=== PATIENT | male | born 1990 | race Caucasian/White ===

== ENCOUNTER 2021-08-25 21:09 | Emergency (ER) | payer BC, SELFPAY ==
[2021-08-25 21:11] VITALS: BP 122/77; PULSE 100; RESP 20; TEMP 36.6; O2SAT 100
[2021-08-25 21:48] VITALS: RESP 18
--- NOTE | 2021-08-25 22:30 | ED.GENADULT ---
HPI - General Adult General Chief complaint: Overdose Stated complaint: meth ingestion from [facility] Time Seen by Provider: 08/25/21 21:51 History of Present Illness HPI narrative: Patient is a 30-year-old male who presents to the ER from [facility] for drug ingestion. Patient is no longer in custody. He was pulled over earlier in the evening around 6:30 PM. When he was pulled over he ingested methamphetamine as well as some oral tablets of fentanyl. He is not concerned about the fentanyl ingestion as it was no more than he would typically take. He reports he developed an upset stomach from ingesting methamphetamine is feeling anxious but no longer feels uncomfortable. He has no chest pain or chest pressure. No nausea or vomiting or shortness of breath. No thoughts of self-harm. Related Data Allergies Allergy/AdvReac Type Severity Reaction Status Date / Time No Known Allergies Allergy Mild Verified 08/25/21 21:14 Review of Systems Review of Systems: All systems reviewed & are unremarkable except as noted in HPI and below Constitutional: Constitutional: Denies chills, Denies fever(s) and Denies weakness ENT: Denies nasal congestion and Denies sore throat Cardiovascular: Cardiovascular: Denies chest pain, Denies rapid heart rate and Denies radiating jaw, neck or arm pain Respiratory: Respiratory: Denies chest congestion and Denies dyspnea Gastrointestinal: Gastrointestinal: Reports abdominal pain, Reports nausea and Denies vomiting Psychiatric: Psychiatric: Reports anxiety, Denies homicidal ideation and Denies suicidal ideation PMFSH Past Medical History Medical History (Updated 08/25/21 @ 22:33 by Newton Figueroa MD) Healthy adult male Surgical History Surgical History (Updated 08/25/21 @ 22:31 by Newton Figueroa MD) History of appendectomy Social History Social History (Updated 08/25/21 @ 22:31 by Newton Figueroa MD) Substance use type: amphetamines and opiates Exam Narrative: GENERAL: Well-appearing, well-nourished, and in no acute distress. HEAD: Normocephalic, atraumatic. EYES: PERRL and EOMI. ENT: Mucous membranes moist. CHEST: Clear to auscultation. No respiratory distress. HEART: Tachycardic regular. Normal peripheral pulses. ABDOMEN: Soft, nontender, nondistended. EXTREMITIES: Normal range of motion. No edema. SKIN: Warm, dry, no rash. NEURO: Alert and oriented x3. Course Course Emergency Course: Unremarkable evaluation. Patient without any symptoms at this time. Patient is 4 hours from ingestion without evidence of intoxication or respiratory suppression. Discharge home. Vital Signs Vital signs: Vital Signs Temperature 97.8 F 08/25/21 21:11 Pulse Rate 100 08/25/21 21:11 Respiratory Rate 20 08/25/21 21:11 Blood Pressure 122/77 08/25/21 21:11 Pulse Oximetry 100 08/25/21 21:11 Temperature 97.8 F 08/25/21 21:11 Pulse Rate 100 08/25/21 21:11 Respiratory Rate 18 08/25/21 21:48 Blood Pressure 122/77 08/25/21 21:11 Pulse Oximetry 100 08/25/21 21:11 Medical Decision Making Vital Signs Vital Signs: Vital Signs Temperature 97.8 F 08/25/21 21:11 Pulse Rate 100 08/25/21 21:11 Respiratory Rate 20 08/25/21 21:11 Blood Pressure 122/77 08/25/21 21:11 Pulse Oximetry 100 08/25/21 21:11 Temperature 97.8 F 08/25/21 21:11 Pulse Rate 100 08/25/21 21:11 Respiratory Rate 18 08/25/21 21:48 Blood Pressure 122/77 08/25/21 21:11 Pulse Oximetry 100 08/25/21 21:11 Discharge Plan Discharge Clinical Impression: Drug abuse Patient Disposition: Home, Self-Care Condition: Stable Instructions: Polysubstance Abuse (ED) Additional Instructions: Return the ER if you have thoughts of harming yourself or others, you develop chest pain or shortness of breath, you lose consciousness, you have additional concerns. Follow-up/Referrals: PHYSICIAN,PSYCHOLOGIST DEVELOPMENTAL [Primary Care Provider]
== END 2021-08-25 22:49 | disposition home or self-care (01) ==
PROVIDERS: Emergency Provider Emergency Medicine
DX: F15.10 Other stimulant abuse, uncomplicated (principal); F11.10 Opioid abuse, uncomplicated
CPT/HCPCS: 99281